=== PATIENT | female | born 1990 | race Two or more races ===

== ENCOUNTER 2022-01-01 10:16 | Emergency (ER) | payer OTHER ==
[2022-01-01] MEDS ORDERED: KETOROLAC 60 MG/2 ML VIAL IM STA (11:32)
--- NOTE | 2022-01-01 11:35 | ED Physician Documentation ---
History of Present Illness - Stated complaint Stated Complaint: BACK PX - Chief complaint Chief Complaint: Back Pain - Additonal information Additional information: 31-year-old female presents emergency department for evaluation of severe back pain. She does report a history of mild back pain in the past but nothing this bad. She typically squats and uses weights during her workout. Yesterday she was playing volleyball. Does not remember an inciting event but in the evening began having back pain. She laid on heating pad. She did not take anything for pain and when she woke up this morning she reports that the pain was severe. No saddle anesthesia, loss of bowel or bladder function. No history of injection drug use. No history of diabetes, immune compromise. She has not taken anything for pain as she does not like to take medications. Pain is described as sharp and in the mid low back with radiation to both of her legs. She often has difficulty finding a position of comfort. She did have an appointment with [facility] today but they canceled it due to provider coverage. No appointment is set yet for follow-up. Review of Systems Constitutional: denies: Fever, Chills Ears: reports: Reviewed and negative Nose: reports: Reviewed and negative Throat: reports: Reviewed and negative Cardiac: reports: Reviewed and negative Respiratory: reports: Reviewed and negative GI: reports: Reviewed and negative Musculoskeletal: reports: Back pain PD PAST MEDICAL HISTORY - Present Medications Home Medications: Ambulatory Orders Medication Instructions Recorded Confirmed Acetaminophen [Tylenol] 650 mg PO Q6H PRN #30 tab 01/01/22 Cyclobenzaprine [Flexeril] 10 mg PO TID PRN 6 Days #20 tablet 01/01/22 Ibuprofen 200 mg PO PRN PRN 01/01/22 01/01/22 Ibuprofen [Motrin] 600 mg PO Q6H PRN #30 tab 01/01/22 - Allergies Allergies/Adverse Reactions: Allergies Allergy/AdvReac Type Severity Reaction Status Date / Time No Known Drug Allergies Allergy Verified 01/01/22 10:25 PD ED PE EXPANDED - General General: Alert, No acute distress - Back Back: Soft tissue tenderness (No focal midline spinous process tenderness. There is pain across the low back with radiation to both legs), Straight leg raise + R, Straight leg raise + L, Other (Reduced forward flexion secondary to pain. Antalgic gait though unassisted. Motor strength 5 of 5 bilateral lower extremities. Patient is able to isolate and raise both great toes.) - Derm Derm: Normal color, Warm and dry. No: Rash - Extremities Extremities: Normal. No: Deformity, Tenderness - Neuro Neuro: Alert and Oriented X 3, CNII-XII intact - GCS Eye Opening: Spontaneous Motor: Obeys Commands Verbal: Oriented Total: 15 Results - Vitals Vitals: Vital Signs - 24 hr 01/01/22 10:19 Temperature 36.3 C L Heart Rate 80 Respiratory 17 Rate Blood Pressure 117/78 O2 Saturation 100 Oxygen O2 Source Room air PD MEDICAL DECISION MAKING - ED course Complexity details: considered differential, d/w patient ED course: 31-year-old female presents emergency department for evaluation of acute low back pain that began after playing volleyball yesterday though she does not remember an inciting event. She also reports squatting as part of her workout routine using weights. No saddle anesthesia, bowel or bladder dysfunction. No immune compromise history of intravenous drug use or spinal instrumentation. On exam she has no paresthesias and motor strength is preserved bilaterally. She does have an antalgic gait. Patient has not taken anything for analgesia since the pain began. Thus because she drove here, she was administered 60 mg of Toradol IM. On reassessment she is beginning to feel somewhat better though not fully resolved. Differential includes sprain, strain versus disc herniation. Given lack of paresthesias low suspicion for foraminal or canal stenosis. No emergent symptoms for MRI today. Patient will be prescribed ibuprofen, Tylenol as well as Flexeril for analgesia. Advise close follow-up with primary care provider. Discussed avoidance of heavy lifting and squatting until back pain is resolved. Emergent return precautions discussed Departure - Departure Disposition: 01 Home, Self Care Clinical Impression: Low back pain Qualifiers: Chronicity: acute Back pain laterality: bilateral Sciatica presence: without sciatica Qualified Code(s): M54.50 - Low back pain, unspecified Condition: Stable Record reviewed to determine appropriate education?: Yes Instructions: ED Sprain Strain Lumbar, ED Low Back Pain Injury Follow-Up: Provider,Other [Primary Care Provider] - Prescriptions: Cyclobenzaprine [Flexeril] 10 mg PO TID PRN 6 Days #20 tablet PRN Reason: Spasms Ibuprofen [Motrin] 600 mg PO Q6H PRN #30 tab PRN Reason: Pain Acetaminophen [Tylenol] 650 mg PO Q6H PRN #30 tab PRN Reason: Pain Comments: Marely I do hope that your back is feeling better soon. The most likely cause of your low back pain is either pulled or strained muscles versus early disc herniation. This can be common in weightlifters. Over the next 7 to 10 days I do recommend that you take the ibuprofen 600 mg with food 3 times a day. This may not make you pain-free but will help with muscle inflammation. You can also take the Tylenol 3-4 times a day for control of pain as well. I have prescribed Flexeril which is a muscle relaxer that some people find helpful in the control of back pain. Use this cautiously and do not drive after taking it as it may make you sleepy. It may be most helpful at nighttime. In general over the next 48 to [address] a cool compress or ice on your low back for 10 minutes 3 times a day. You can attempt gentle stretching though I would not expect you to be able to achieve your full range of motion. In general most low back pain will begin to resolve after 1 to 2 weeks. It is important that you continue to walk and stay as mobile as possible. However you should avoid heavy lifting pushing or pulling as this can exacerbate or make your acute low back pain worse in the next few weeks. I do recommend you have close follow-up with [facility]. If you are finding that your back pain is not consistently improving over 1 to 2 weeks you may benefit from referral to physical therapy and/or consideration for referral of an MRI however this needs to come through [facility] and is not routinely done through the emergency department. If at any point you find that you have numbness or tingling in your genital area, lose control of your bowel or bladder function, have sudden weakness in your lower extremities then you should return immediately to the ER for second evaluation.
[2022-01-01 12:02] VITALS: BP 121/64
== END 2022-01-01 12:02 | disposition home or self-care (01) ==
LOC: ED 10:16
DX: M54.50 Low back pain, unspecified (principal)
CPT/HCPCS: 96372; 99282; 99283